=== PATIENT | female | born 1985 | race Caucasian/White ===

== ENCOUNTER 2018-05-10 19:01 | Inpatient (IN) | payer MEDICAID ==
[2018-05-10] MEDS: LACTATED RINGER'S 1,000 ML IV ×2 (20:22→22:14)
[2018-05-10 20:37] LABS: ADD MAN DIFF? NO
[2018-05-10 20:38] LABS: WHITE BLOOD COUNT 7.9 10^3/ul (4.8-10.8)
[2018-05-10 20:38] LABS: BASOPHILS % 0.4 % (0.0-2.0); EOSINOPHILS % 0.4 % (0.0-7.0); HEMATOCRIT 32.7 % (37.0-47.0); HEMOGLOBIN 11.1 g/dl (12.0-16.0); LYMPHOCYTES # 1.6 10^3/ul (0.8-2.9); LYMPHOCYTES % 20.4 % (15.0-51.0); MEAN CORPUSCULAR HEMOGLOBIN 29.8 pg (29.0-33.0); MEAN CORPUSCULAR HGB CONC 33.9 g/dl (32.0-37.0); MEAN CORPUSCULAR VOLUME 87.9 fl (82.0-101.0); MEAN PLATELET VOLUME 10.7 fl (7.4-10.4); MONOCYTE # 0.4 10^3/ul (0.3-0.9); MONOCYTES % 5.2 % (0.0-11.0); NEUTROPHIL # 5.8 10^3/ul (1.6-7.5); NEUTROPHILS % 73.2 % (39.0-77.0); PLATELET COUNT 224 10^3/UL (140-415); RED BLOOD COUNT 3.72 10^6/ul (4.20-5.40); RED CELL DISTRIBUTION WIDTH 13.3 % (11.5-14.5)
[2018-05-10 20:47] LABS: INR 0.81; PROTIME 11.3 Sec (11.9-14.9); PT RATIO 0.9
[2018-05-10 20:48] LABS: PARTIAL THROMBOPLASTIN TIME 29.1 Sec (23.0-35.0)
[2018-05-10] MEDS ORDERED: MISOPROSTOL 200 MCG TAB PR (21:00)
[2018-05-10] MEDS ORDERED: CARBOPROST 250 MCG INJ IM (21:00)
[2018-05-10] MEDS ORDERED: AMPICILLIN 2 GM/NS (PMX) 100 ML IV (21:00)
[2018-05-10] MEDS ORDERED: METHYLERGONOVINE 0.2 MG INJ IM (21:00)
[2018-05-10 21:21] LABS: HEPATITIS B SURFACE ANTIGEN NEGATIVE (NEGATIVE)
[2018-05-10] MEDS ORDERED: CEFAZOLIN 2 GM/50 ML (PMX) 50 ML IVPB (21:46)
[2018-05-10] MEDS ORDERED: CITRIC ACID/NA CITRATE 30 ML CUP (22:00)
[2018-05-10] MEDS: CITRIC ACID/NA CITRATE 30 ML CUP PO (22:07)
[2018-05-10] MEDS: AMPICILLIN 2 GM/NS (PMX) 100 ML IV (22:30)
[2018-05-10] MEDS ORDERED: METOCLOPRAMIDE 10 MG INJ (22:48)
[2018-05-10] MEDS ORDERED: morphine SULFATE/PF (10 MG/10 ML) INJ (22:48)
[2018-05-10] MEDS ORDERED: ONDANSETRON 4 MG INJ (22:48)
[2018-05-10] MEDS ORDERED: KETOROLAC 30 MG INJ (22:48)
[2018-05-10] MEDS ORDERED: PHENYLephrine (100 MCG/ML) 10ML SYG (23:12)
[2018-05-11] MEDS ORDERED: OXYTOCIN 30 UNITS/LR 500 ML IV ×2 (00:10→03:30)
[2018-05-11] MEDS ORDERED: ESMOLOL 10 ML (00:13)
[2018-05-11] MEDS ORDERED: morphine (1 MG/ML) 10ML SYRINGE IV ×3 (00:30)
[2018-05-11] MEDS ORDERED: ONDANSETRON 4 MG INJ IV ×2 (00:30→03:30)
[2018-05-11] MEDS ORDERED: DIPHENHYDRAMINE 50 MG INJ IV ×3 (00:30→03:30)
[2018-05-11] MEDS ORDERED: NALOXONE (0.4 MG/ML) INJ IV (00:30)
[2018-05-11] MEDS ORDERED: morphine 4 MG/ML VIAL IV ×3 (00:30)
[2018-05-11] MEDS: OXYTOCIN 30 UNITS/LR 500 ML IV ×2 (00:46→04:10)
[2018-05-11] MEDS: ONDANSETRON 4 MG INJ IV (02:24)
[2018-05-11 02:50] LABS: HIV 1&2 ANTIBODY NEGATIVE (NEGATIVE)
[2018-05-11] MEDS ORDERED: ZOLPIDEM 5 MG TAB PO (03:30)
[2018-05-11] MEDS ORDERED: MISOPROSTOL 200 MCG TAB PR (03:30)
[2018-05-11] MEDS ORDERED: CARBOPROST 250 MCG INJ IM (03:30)
[2018-05-11] MEDS ORDERED: METHYLERGONOVINE 0.2 MG INJ IM (03:30)
[2018-05-11] MEDS: LANOLIN HPA 1 PKT TOP (04:08)
[2018-05-11] MEDS: LACTATED RINGER'S 1,000 ML IV ×2 (08:53→16:59)
[2018-05-11] MEDS: SENNA/DOCUSATE NA (8.6MG/50MG) TAB PO ×2 (09:00→21:17)
[2018-05-11] MEDS: KETOROLAC 30 MG INJ IV (14:19)
[2018-05-11 15:07] LABS: RAPID PLASMA REAGIN NONREACTIVE (NR)
[2018-05-12] MEDS ORDERED: OXYCODONE/ACETAMINOPHEN (5/325) TAB PO ×2 (00:30)
[2018-05-12] MEDS: IBUPROFEN 600 MG TAB PO ×3 (05:49→17:18)
[2018-05-12 06:50] LABS: ADD MAN DIFF? NO
[2018-05-12 06:55] LABS: WHITE BLOOD COUNT 8.7 10^3/ul (4.8-10.8)
[2018-05-12 06:55] LABS: BASOPHILS % 0.2 % (0.0-2.0); EOSINOPHILS % 0.3 % (0.0-7.0); HEMATOCRIT 25.8 % (37.0-47.0); HEMOGLOBIN 8.7 g/dl (12.0-16.0); LYMPHOCYTES % 22.5 % (15.0-51.0); MEAN CORPUSCULAR HEMOGLOBIN 30.1 pg (29.0-33.0); MEAN CORPUSCULAR HGB CONC 33.7 g/dl (32.0-37.0); MEAN CORPUSCULAR VOLUME 89.3 fl (82.0-101.0); MEAN PLATELET VOLUME 10.5 fl (7.4-10.4); MONOCYTE # 0.6 10^3/ul (0.3-0.9); MONOCYTES % 6.6 % (0.0-11.0); NEUTROPHILS % 69.6 % (39.0-77.0); PLATELET COUNT 173 10^3/UL (140-415); RED BLOOD COUNT 2.89 10^6/ul (4.20-5.40); RED CELL DISTRIBUTION WIDTH 13.8 % (11.5-14.5)
[2018-05-12] MEDS: SENNA/DOCUSATE NA (8.6MG/50MG) TAB PO ×2 (09:50→21:00)
[2018-05-12] MEDS: BISACODYL 10 MG SUPP PR (17:19)
[2018-05-13] MEDS: IBUPROFEN 600 MG TAB PO ×3 (00:06→12:00)
[2018-05-13] MEDS: SENNA/DOCUSATE NA (8.6MG/50MG) TAB PO (09:00)
[2018-05-14] MEDS ORDERED: DIPHTH/TET/ACEL PERTUSS (ADULT) 0.5 ML VIAL IM* (09:00)
== END 2018-05-13 16:20 | disposition home or self-care (01) | DRG 785 ==
LOC: OBT 19:01 → L-D 05-11 01:52 → PP1 05-11 02:52 → L-D 19:07 → OBT 21:40 → L-D 21:40
PROVIDERS: Obstetrics & Gynecology
PROC: 10D00Z1 Extraction of Products of Conception, Low, Open Approach (ICD-10-PCS; principal; 2018-05-10)
PROC: 0UT70ZZ Resection of Bilateral Fallopian Tubes, Open Approach (ICD-10-PCS; 2018-05-10)
DX: O34.211 Maternal care for low transverse scar from previous cesarean delivery (principal); O99.02 Anemia complicating childbirth; Z30.2 Encounter for sterilization; Z3A.38 38 weeks gestation of pregnancy; Z37.0 Single live birth
CPT/HCPCS: 85025; 85610; 85730; 86592; 86703; 86850; 86900; 86901; 87340; 88302; 99464